=== PATIENT | female | born 1965 | race Caucasian/White ===

== ENCOUNTER 2018-11-08 11:42 | Outpatient (CLI) | payer OTHER ==
[2018-11-08 19:03] LABS: ALBUMIN 4.4 g/dL (3.2-5.5); ALBUMIN/GLOBULIN RATIO 1.3 (1.0-2.2); ALKALINE PHOSPHATASE 44 IU/L (42-121); ALT ALANINE AMINOTRANSFERASE 12 IU/L (10-60); AST ASPARTATE AMINOTRANSFERASE 18 IU/L (10-42); BILIRUBIN,TOTAL 0.6 mg/dL (0.2-1.0); BUN - BLOOD UREA NITROGEN 11 mg/dL (6-20); CALCIUM 9.7 mg/dL (8.5-10.3); CARBON DIOXIDE - CO2 27 mmol/L (21-32); CHLORIDE 106 mmol/L (101-111); CHOL/HDL RATIO 3.2 (<4.4); CHOLESTEROL 236 mg/dL; GFR - MDRD 58 (>89); GLUCOSE 95 mg/dL (70-100); HDL CHOLESTEROL 74 mg/dL; LDL CHOLESTEROL,CALCULATED 140 mg/dL; LDL/HDL RATIO 1.9 (<4.4); SODIUM 140 mmol/L (135-145); TOTAL PROTEIN 7.8 g/dL (6.7-8.2); VLDL CHOLESTEROL 22 mg/dL
[2018-11-08 19:08] LABS: BASOPHILS # (AUTO) 0.1 10^3/uL (0.0-0.1); BASOPHILS % (AUTO) 0.7 %; EOSINOPHILS # (AUTO) 0.1 10^3/uL (0.0-0.7); EOSINOPHILS % (AUTO) 0.9 %; HGB - HEMOGLOBIN 15.4 g/dL (12.0-16.0); LYMPHOCYTES # (AUTO) 3.3 10^3/uL (1.5-3.5); MEAN CORPUSCULAR HEMOGLOBIN 31.9 pg (27.0-31.0); MEAN CORPUSCULAR HGB CONC 33.1 g/dL (32.0-36.0); MEAN CORPUSCULAR VOLUME 96.3 fL (81.0-99.0); MEAN PLATELET VOLUME 11.1 fL (7.9-10.8); MONOCYTES # (AUTO) 0.4 10^3/uL (0.0-1.0); NEUTROPHILS # (AUTO) 4.2 10^3/uL (1.5-6.6); NEUTROPHILS % (AUTO) 52.4 %; PLT - PLATELET COUNT 246 10^3/uL (130-450); RED BLOOD COUNT 4.84 10^6/uL (4.20-5.40); RED CELL DISTRIBUTION WIDTH 12.4 % (12.0-15.0)
[2018-11-08 20:09] LABS: DIFFERENTIAL COMMENT MANUAL=AUTO DIFF; PLATELET ESTIMATE, MANUAL NORMAL (130-450,000) (NORMAL); PLATELET MORPHOLOGY 1+ LARGE PLATELETS (NORMAL); RBC MORPHOLOGY (MULTIPLE) NORMAL APPEARANCE (NORMAL)
== END 2018-11-08 11:43 | disposition home or self-care (01) ==
LOC: LAB.WCP 11:42
PROVIDERS: ATTEND Family Medicine
DX: F31.9 Bipolar disorder, unspecified (principal); E78.5 Hyperlipidemia, unspecified
CPT/HCPCS: 36415; 80050; 80061; 83721

== ENCOUNTER 2018-12-20 15:29 | Emergency (ER) | payer OTHER ==
[2018-12-20 16:19] LABS: BASOPHILS # (AUTO) 0.1 10^3/uL (0.0-0.1); BASOPHILS % (AUTO) 0.8 %; EOSINOPHILS # (AUTO) 0.1 10^3/uL (0.0-0.7); EOSINOPHILS % (AUTO) 1.1 %; HGB - HEMOGLOBIN 14.4 g/dL (12.0-16.0); LYMPHOCYTES # (AUTO) 3.3 10^3/uL (1.5-3.5); LYMPHOCYTES % (AUTO) 43.8 %; MEAN CORPUSCULAR HEMOGLOBIN 31.5 pg (27.0-31.0); MEAN CORPUSCULAR HGB CONC 33.3 g/dL (32.0-36.0); MEAN CORPUSCULAR VOLUME 94.7 fL (81.0-99.0); MEAN PLATELET VOLUME 10.3 fL (7.9-10.8); MONOCYTES # (AUTO) 0.4 10^3/uL (0.0-1.0); NEUTROPHILS # (AUTO) 3.6 10^3/uL (1.5-6.6); NEUTROPHILS % (AUTO) 48.3 %; PLT - PLATELET COUNT 230 10^3/uL (130-450); RED BLOOD COUNT 4.57 10^6/uL (4.20-5.40); RED CELL DISTRIBUTION WIDTH 12.2 % (12.0-15.0); WHITE BLOOD COUNT 7.5 x10^3/uL (4.8-10.8)
--- NOTE | 2018-12-20 16:25 | XRAY Report ---
Reason: chest pain Procedure Date: 12/20/2018 Accession Number: [id number] / [id number] Procedure: XR - Chest 1 View X-Ray CPT Code: 50125 FULL RESULT: EXAM: CHEST RADIOGRAPHY EXAM DATE: 12/20/2018 03:43 PM. CLINICAL HISTORY: Chest pain. COMPARISON: None. TECHNIQUE: 1 view. FINDINGS: Lungs/Pleura: No focal opacities evident. No pleural effusion. No pneumothorax. Mediastinum: Within exam limitations, the cardiomediastinal contour is normal. Other: Surgical clips in the right upper quadrant. IMPRESSION: No acute cardiopulmonary disease seen. RADIA
[2018-12-20 16:31] LABS: ALBUMIN 4.3 g/dL (3.2-5.5); ALBUMIN/GLOBULIN RATIO 1.3 (1.0-2.2); BILIRUBIN,TOTAL 0.6 mg/dL (0.2-1.0); CALCIUM 9.6 mg/dL (8.5-10.3); TOTAL PROTEIN 7.7 g/dL (6.7-8.2)
[2018-12-20 16:33] LABS: PLATELET ESTIMATE, MANUAL NORMAL (130-450,000) (NORMAL); PLATELET MORPHOLOGY B (NORMAL); RBC MORPHOLOGY (MULTIPLE) NORMAL APPEARANCE (NORMAL)
[2018-12-20 17:48] VITALS: BP 139/76
--- NOTE | 2018-12-20 18:12 | ED Physician Documentation ---
PD HPI CHEST PAIN - Stated complaint Stated Complaint: CHEST PX SENT BY DOC - Chief complaint Chief Complaint: Cardiac - History obtained from History obtained from: Patient, Family () - History of Present Illness Timing - onset: Other (For the last 6 days she has had sharp left upper back pain now with sharp L chest pain that is assoc with deep breathing. No cough or dyspnea.) Review of Systems Ten Systems: 10 systems reviewed and negative Constitutional: denies: Fever, Chills Cardiac: denies: Palpitations, Pedal edema, Calf pain Respiratory: denies: Dyspnea, Cough GI: denies: Abdominal Pain PD PAST MEDICAL HISTORY - Present Medications Home Medications: Ambulatory Orders Medication Instructions Recorded Confirmed ALPRAZolam [Alprazolam] 0.25 mg PO 12/20/18 Ondansetron HCl [Zofran] 4 mg PO 12/20/18 SUMAtriptan [Imitrex] 25 mg PO ONCE 12/20/18 12/20/18 Zolpidem [Ambien] 5 mg PO HS 12/20/18 12/20/18 cloNIDine [Catapres] 0.1 mg PO BID 12/20/18 12/20/18 - Allergies Allergies/Adverse Reactions: Allergies Allergy/AdvReac Type Severity Reaction Status Date / Time Sulfa (Sulfonamide Allergy Unknown Verified 12/20/18 15:36 Antibiotics) PD ED PE NORMAL - Vitals Vital signs reviewed: Yes - General General: Alert and oriented X 3, No acute distress - HEENT HEENT: PERRL, EOMI - Neck Neck: Supple, no meningeal sign, No bony TTP - Cardiac Cardiac: RRR, No murmur - Respiratory Respiratory: No respiratory distress, Clear bilaterally - Abdomen Abdomen: Non tender - Extremities Extremities: No edema, No calf tenderness / cord - Neuro Neuro: Alert and oriented X 3, Normal speech Results - Vitals Vitals: Vital Signs - 24 hr 12/20/18 12/20/18 15:35 17:47 Temperature 36.6 C 36.6 C Heart Rate 89 78 Respiratory 20 18 Rate Blood Pressure 142/82 H 139/76 H O2 Saturation 97 98 Oxygen O2 Source Room air - EKG (time done) 1540 Rate: Rate (enter#) (76) Rhythm: NSR [place]: Normal Intervals: Normal MD QRS: Normal Ischemia: Non specific changes. No: ST elevation c/w ischemia, T wave inversion Computer interpretation: Agree with computer - Labs Labs: Laboratory Tests 12/20/18 12/20/18 12/20/18 16:10 16:10 16:10 WBC 7.5 RBC 4.57 Hgb 14.4 Hct 43.2 MCV 94.7 MCH 31.5 H MCHC 33.3 RDW 12.2 Plt Count 230 MPV 10.3 Neut # (Auto) 3.6 Lymph # (Auto) 3.3 Villalba # (Auto) 0.4 Eos # (Auto) 0.1 Baso # (Auto) 0.1 Absolute Nucleated RBC 0.00 Nucleated RBC % 0.1 Manual Slide Review Indicated WBC Morphology NORMAL APPEARANCE Platelet Estimate NORMAL (130-450,000) Platelet Morphology B RBC Morph Micro Appear NORMAL APPEARANCE Sodium 139 Potassium 3.7 Chloride 103 Carbon Dioxide 26 Anion Gap 10.0 BUN 16 Creatinine 1.0 Estimated GFR (MDRD) 58 L Glucose 94 Calcium 9.6 Total Bilirubin 0.6 AST 20 ALT 15 Alkaline Phosphatase 39 L Troponin I < 0.04 Total Protein 7.7 Albumin 4.3 Globulin 3.4 Albumin/Globulin Ratio 1.3 Lipase 88 H PD MEDICAL DECISION MAKING - ED course ED course: 53-year-old woman with sharp back pain associated with motion, twisting, deep breathing now under the costal margin on the left with 6 days of constant pain, so single troponin should be definitive. Nothing in the history or physical to suggest PE. Departure - Departure Disposition: 01 Home, Self Care Clinical Impression: Pleurisy Condition: Good Record reviewed to determine appropriate education?: Yes Instructions: ED Chest Pain NonCardiac Comments: Call your doctor to arrange a follow-up appointment, make the next available appointment. In the interim, return anytime if worse or if new symptoms develop. Your blood pressure was elevated today on check into the emergency department. This does not mean that you have hypertension, it is a common phenomenon to come to the emergency department and have elevated blood pressure. I recommend that you see your primary care physician within the week to have it rechecked when you are feeling better.
== END 2018-12-20 18:43 | disposition home or self-care (01) ==
LOC: ED 15:29
DX: R09.1 Pleurisy (principal); R03.0 Elevated blood-pressure reading, without diagnosis of hypertension; I45.81 Long QT syndrome
CPT/HCPCS: 36415; 71045; 80053; 83690; 84484; 85025; 93005; 99283; 99284

== ENCOUNTER 2019-04-13 13:27 | Outpatient (CLI) | payer OTHER ==
--- NOTE | 2019-04-13 20:05 | XRAY Report ---
Reason: COPD Procedure Date: 04/13/2019 Accession Number: [id number] / [id number] Procedure: WCP - Chest 2 View X-Ray CPT Code: 26450 FULL RESULT: EXAM: CHEST RADIOGRAPHY EXAM DATE: 04/13/2019 01:42 PM. CLINICAL HISTORY: COPD. Chest pain. COMPARISON: CHEST 1 VIEW 12/20/2018 3:43 PM. TECHNIQUE: 2 views. FINDINGS: Lungs/Pleura: Large volumes. No focal pneumonia or overt edema. No pneumothorax or effusion. Mediastinum: Within exam limitations, cardiomediastinal contour is normal. Other: None. IMPRESSION: COPD without acute process seen in the chest. RADIA
== END 2019-04-13 13:28 | disposition home or self-care (01) ==
LOC: DI.WCP 13:27
PROVIDERS: ATTEND Family Medicine
DX: J44.9 Chronic obstructive pulmonary disease, unspecified (principal)
CPT/HCPCS: 71046

== ENCOUNTER 2019-11-21 10:15 | Outpatient (CLI) | payer OTHER ==
--- NOTE | 2019-11-21 16:18 | XRAY Report ---
Reason: BILATERAL HIP PAIN Procedure Date: 11/21/2019 Accession Number: [id number] / [id number] Procedure: WCP - Pelvis 1 View CPT Code: Final Report FULL RESULT: EXAM: PELVIS RADIOGRAPHY EXAM DATE: 11/21/2019 10:15 AM. CLINICAL HISTORY: BILATERAL HIP PAIN. COMPARISON: None. TECHNIQUE: 1 view. FINDINGS: Bones: Normal. No fracture or bone lesion. Joints: The visualized hip, pubis symphysis, and sacroiliac joints are preserved. No subluxation. Soft Tissues: Normal. No soft tissue swelling. IMPRESSION: Normal pelvis radiography. RADIA
== END 2019-11-21 23:59 | disposition home or self-care (01) ==
LOC: DI.WCP 10:15
PROVIDERS: ATTEND Family Medicine
DX: M25.551 Pain in right hip (principal); M25.552 Pain in left hip
CPT/HCPCS: 72170

== ENCOUNTER 2019-11-30 16:21 | Outpatient (CLI) | payer OTHER ==
--- NOTE | 2019-12-01 15:37 | Ultrasound Report ---
Reason: CLAUDICATION BILATERAL Procedure Date: 11/30/2019 Accession Number: [id number] / [id number] Procedure: US - Duplex Lwr Ext Arterial Bilat CPT Code: Final Report FULL RESULT: EXAM: BILATERAL LOWER EXTREMITY ARTERIAL DOPPLER ULTRASOUND. EXAM DATE: 11/30/2019 05:50 PM. CLINICAL HISTORY: Claudication bilateral. COMPARISON: None. TECHNIQUE: Real-time sonographic vascular imaging was performed by the it technician, utilizing color-flow, Doppler flow, and spectral analysis. Multiple community relations representative static images were saved for review. FINDINGS: Bilateral lower extremity arterial duplex examination is performed with vessel patency confirmed by color Doppler and vessel morphology assessed with grayscale Doppler. All vessels are patent by spectral and color Doppler as assessed below. All vessels demonstrate preserved brisk systolic arterial upstrokes with exception of the left peroneal artery which is not seen and presumed occluded. Grayscale Doppler demonstrates atherosclerotic disease diffusely with a focal atherosclerotic lesion seen in the region of the right distal SFA/proximal popliteal artery at the level of the canal, not convincingly flow limiting by spectral waveforms. Right Leg: GRAPHIC DESIGN TEACHER: PSV 151 cm/sec. Monophasic waveform. PSFA: PSV 101 cm/sec. Triphasic waveform. MSFA: PSV 102 cm/sec. Triphasic waveform. DSFA: PSV 87 cm/sec. Triphasic waveform. PFA: PSV 69 cm/sec. Monophasic waveform. POP: PSV 33/55 cm/sec. Biphasic/Triphasic waveform. LORRI: PSV 15 cm/sec. Monophasic waveform. SALAD COUNTER ATTENDANT: PSV 37 cm/sec. Biphasic waveform. PER: PSV 50 cm/sec. Biphasic waveform. DPA: PSV 13 cm/sec. Biphasic waveform. Left Leg: GRAPHIC DESIGN TEACHER: PSV 155 cm/sec. Monophasic waveform. PSFA: PSV 76 cm/sec. Triphasic waveform. MSFA: PSV 86 cm/sec. Triphasic waveform. DSFA: PSV 94 cm/sec. Triphasic waveform. PFA: PSV 82 cm/sec. Monophasic waveform. POP: PSV 33 cm/sec. Biphasic waveform. LORRI: PSV 39 cm/sec. Biphasic waveform. SALAD COUNTER ATTENDANT: PSV 31 cm/sec. Biphasic/Triphasic waveform. DPA: PSV 28 cm/sec. Monophasic waveform. IMPRESSION: Atherosclerotic disease morphologically most pronounced at the level of the canal at the distal SFA/proximal popliteal artery on the right. Preserved brisk arterial upstrokes throughout both lower extremities with the exception of the left peroneal artery which is not found. RADIA
== END 2019-11-30 16:22 | disposition home or self-care (01) ==
LOC: DI 16:21
PROVIDERS: ATTEND Family Medicine
DX: I70.211 Atherosclerosis of native arteries of extremities with intermittent claudication, right leg (principal); F17.200 Nicotine dependence, unspecified, uncomplicated
CPT/HCPCS: 93925

== ENCOUNTER 2020-11-05 13:26 | Outpatient (CLI) | payer OTHER ==
--- NOTE | 2020-11-05 16:15 | SLEEP CARE CONSULTATION ---
Information from patient questionnaire entered by Tracie Kay. I have reviewed and concur with the information entered by Tracie Kay. This document represents the service I personally performed and the decisions made by me, Parth Veras MD, [facility]. History of Present Illness Service Date and Time: 11/05/2020 1326 Reason for Visit: New patient Chief Complaint: reports: Insomnia, Unrefreshed sleep, Excessive daytime sleepiness, Fatigue, Frequent awakenings at night Date of Onset: 13 years Usual bedtime: 8-10 pm Time it takes to fall asleep: unsure Snores at night: Yes (sometimes) Observed to quit breathing while asleep: No Sleeps alone due to snoring: No Number of times waking at night: 1-2 then get up Reasons for waking at night: reports: Other (adrenline ramos within 15 minutes of falling asleep) Toss, Turn, or Twitch while sleeping: Yes Recalls having dreams: No Feels refreshed in the morning: No Morning headache: Yes Sleepy or fatigued during the day: Yes Ever fallen asleep while driving: No Takes day naps: Yes (I try) Dreams during day naps: Yes Prior sleep studies: Yes Year and Where: [place], [place] Additional HPI information: I have the pleasure of seeing Ms. Stewart today regarding the possibility of her having obstructive sleep apnea. As you know, she is a 55 year old lady who complains of insomnia for the past 14 years. She had a sleep study in [place], [place] at the onset and was prescribed a CPAP device. She said the CPAP helped with her sleep somewhat. She quit using it when she ran out of supplies. Her main complaint is inadequate sleep. She says she goes to bed between 8 10 pm and out of bed by 1 am. She tries to nap but unable. She feels that the lack of sleep has made her unable to function. She quit driving 5 months ago because she cannot trust her judgment. She cannot go shopping. She breaks down in tears often. She is now taking gabapentin and melatonin to help her sleep. 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 Patient is and lives in [place]. Have you smoked in the past 12 months: Yes Cigarettes per day (20/pack): 20 Years of smokin Smoking Pack Years: 30.0 Alcohol use: No Caffeine use: Yes Caffeine amount and frequency: 2 cups Family History Family history of sleep disordered breathing: No Allergies and Home Medications Drug allergies reviewed: Yes Home medication list reviewed: Yes Review of Systems Weight loss over past 5 years: 48 Cardiovascular: reports: high blood pressure, palpitations, chest pain Respiratory: reports: chronic cough Gastrointestinal: reports: heartburn, nausea, vomitting, abdominal pain Urinary: reports: frequency Neurological: reports: headaches Psychiatric: reports: anxiety, depression Ear/Nose/Throat: reports: sinus problems, wisdom teeth removed Endocrine: reports: sluggishness, too hot or cold, unexplained weakness Musculoskeletal: reports: joint pain, neck pain, back pain, muscle pain or cramping Immunologic: reports: sneezing, allergies to food or environment Physical Exam Vital signs obtained and entered by: To minimize the risk of COVID-19 exposure, detailed exam was not performed. Height: 5 ft 3 in Impression and Plan IMPRESSION: 1. Obstructive Sleep Apnea-Hypopnea Syndrome, as previously diagnosed 14 years ago. The report is not available. The diagnosis will have to be confirmed. 2. Insomnia, most likely due to anxiety and sleep state misperception. I will be very unusual for a person to be getting an average of just 4 hours of sleep a night. I suspect that she is sleeping at other times as well. I will first have her keep a sleep diary. If that does not help in defining her sleep-wake pattern, then an actigraphy will be necessary. Plan: 1. Schedule an in-laboratory polysomnography. 2. Keep sleep diary. I gave her 1-month worth of the sleep log. 3. Return for a follow up after the sleep study. Time Spent with Patient (minutes): 15
== END 2020-11-05 13:27 | disposition home or self-care (01) ==
LOC: SC 13:26
PROVIDERS: ATTEND Internal Medicine Pulmonary Disease
DX: G47.33 Obstructive sleep apnea (adult) (pediatric) (principal); G47.00 Insomnia, unspecified; F17.210 Nicotine dependence, cigarettes, uncomplicated
CPT/HCPCS: 99202; 99212

== ENCOUNTER 2020-11-22 12:52 | Outpatient (CLI) | payer OTHER | END 2020-11-22 12:53 | disposition home or self-care (01) | LOC: SC 12:52 | PROVIDERS: ATTEND Internal Medicine Pulmonary Disease | DX: R53.83 Other fatigue (principal); G47.8 Other sleep disorders; G47.00 Insomnia, unspecified | CPT/HCPCS: 95806 ==

== ENCOUNTER 2020-11-29 16:25 | Outpatient (CLI) | payer OTHER ==
--- NOTE | 2020-11-29 16:51 | SLEEP CARE CONSULTATION ---
Information from patient questionnaire entered by Mary Klein. I have reviewed and concur with the information entered by Mary Klein. This document represents the service I personally performed and the decisions made by , Rashida Hutchins ARNP. History of Present Illness Service Date and Time: 11/29/2020 1625 Initial [place] Sleepiness Scale score: 1 (in 2020) Current [place] Sleepiness Scale score: 1 Additional HPI information: MYRIAM ARANDA returns with spouse for follow up and results of the recently performed home sleep study. The patient was informed of the following findings: no significant sleep disordered breathing with an average AHI of 1.7 and sebastian oxygen saturation of 86% I explained the pathophysiology behind obstructive sleep apnea. Patient does not have sleep apnea and was advised how weight gain could increase the risk of developing sleep apnea in the future. Patient has light snoring. Snoring can also be treated with an oral appliance from a dentist. Advised to check insurance coverage. In addition, an ENT evaluation can be do to see if other treatment is indicated. Patient does not drink alcohol. Patient denies drowsy driving. Sleep Study - Results Type of Sleep Study: Home sleep study Prior sleep studies: Yes Year and Where: [place], [place] Polysomnography/Home Sleep Study results: Physician Impression: The quality of the study is good. The length of the study is adequate (> 240 minutes). Please also see the tabulated and graphic data. 1. No significant sleep-disordered breathing, with an AHI of 1.7/hr and sebastian SaO2 of 86%. During the study, the patient had 8 apneas (8 obstructive, 0 central, 0 mixed) and 4 hypopneas. The longest episode lasted 43.5 seconds. The few respiratory events occurred more frequently during supine sleep (supine AHI was 2.3 and non-supine, 0.73). 2. Hypoxemia (ICD-10 R09.02), mild, with the lowest oxygen saturation of 86 % and 3.4 minutes with SaO2 under 90%. Baseline oxygen saturation was normal (Average oxygen saturation was 94%). Allergies and Home Medications Home medication list reviewed: Yes (no changes) Review of Systems Review of systems same as previous: Yes (no changes) Physical Exam Heart Rate: 62 O2 Saturation: 91 Height: 5 ft 3 in Weight: 111 lb Body Mass Index: 19.6 BMI Classification: Healthy weight Impression and Plan 1. Snoring, very mild, but no significant sleep disordered breathing. Patient advised that often weight loss will reduce snoring as well as apnea risk and advised to maintain a healthy weight. An oral appliance can also be used for snoring. This would require a dental consultation. An ENT consult can also be helpful to determine if any other treatment is an option. 2. Fatigue, unspecified. Patient advised that fatigue can be caused by many things and she should follow up with her PCP for further evaluation of her daily fatigue. * Follow up with PCP for fatigue * Avoid alcohol consumption near bedtime * The patient is cautioned about driving until sleepiness is completely resolved. Patient does not drive at this time. * Return as needed. Visit Type: In Office Other Participants: Spouse/Significant Other Time Spent with Patient (minutes): 18 Provider Statement: I spent 100% of the Face to Face Visit with the patient with greater than 50% spent counseling the patient and coordination of care.
== END 2020-11-29 16:26 | disposition home or self-care (01) ==
LOC: SC 16:25
PROVIDERS: ATTEND Nurse Practitioner Family
DX: R06.83 Snoring (principal); R53.83 Other fatigue
CPT/HCPCS: 99212